=== PATIENT | male | born 1975 | race Caucasian/White ===

== ENCOUNTER → 2016-10-11 | Outpatient (CLI) | payer OTHER ==
--- NOTE | 2016-10-11 12:24 | REP ---
MRI left ankle without contrast, 10/11/2016: Indication: Post traumatic osteoarthritis. Comparison made with left ankle series 05/12/2015 and fluoroscopic images left ankle 05/29/2015. Findings: Sagittal, axial and coronal images were obtained of the left ankle without contrast. Findings: Two old transversely oriented screw tracks are seen traversing the distal tibia and fibula. The alignment appears anatomic. There is mild narrowing of the mortise joint Achilles tendon and plantar fascia are intact. Flexor and extensor tendons about the ankle appear intact. There is a small ankle joint effusion. The anterior and posterior talofibular ligaments, and calcaneofibular ligament are intact. Minimal edema is identified within the anterior aspect of deltoid ligament, yet it is intact. There is no fracture or bone bruise. There is an minimal ankle joint effusion. Impression: 1. Postsurgical changes with old screw tracks seen through the distal tibia and fibula. The alignment is anatomic. There is mild narrowing of tibiotalar joint. 2. No fracture, ligamentous or tendinous disruption. There is minimal edema within the anterior aspect of deltoid you ligament, yet it is intact.3. Minimal ankle joint effusion. Signed by Monica Jacinto MD 10/13/2016 02:40 P
== END ==
LOC: M RAD 09:31
PROVIDERS: ATTEND Orthopaedic Surgery
DX: M25.572 Pain in left ankle and joints of left foot (principal)

== ENCOUNTER → 2017-02-19 | Outpatient (CLI) | payer BC, OTHER ==
--- NOTE | 2017-02-19 16:52 | REP ---
Right foot series: Four views: History: Right foot pain. Findings: Four views of the right foot demonstrate overall normal mineralization. Bones, joints and soft tissues are unremarkable. No fracture or bony destructive lesion is seen. Impression: Negative right foot radiographs. Signed by Daniel Arnett MD 02/20/2017 08:59 A
== END ==
LOC: M LRY 16:22
PROVIDERS: ATTEND Nurse Practitioner Family
DX: M25.571 Pain in right ankle and joints of right foot (principal)

== ENCOUNTER → 2018-04-07 | Outpatient (REF) | payer OTHER | LOC: M SFHCLERA 18:30 | DX: R53.81 Other malaise (principal) ==

== ENCOUNTER → 2019-07-12 | Outpatient (CLI) | payer OTHER ==
--- NOTE | 2019-07-12 12:50 | REP ---
LUMBAR SPINE SERIES: Five views. HISTORY: Back pain. FINDINGS: Five views of the lumbar spine show preserved vertebral body heights. Alignment is normal. There is mild discogenic spurring anteriorly at L1-2 and to a lesser extent L3-4. There is mild disc space narrowing at L4-5. There is no evidence of spondylolysis or spondylolisthesis. Mild facet hypertrophy and sclerosis is present bilaterally at L5-S1. Psoas margins are symmetric. Sacrum SI joints are intact. IMPRESSION: Mild degenerative disc and facet changes. No acute bony abnormality. Electronically Signed by Daniel Arnett MD 07/12/2019 01:55 P
== END ==
LOC: M LRY 11:55
PROVIDERS: ATTEND Nurse Practitioner Family
DX: M25.78 Osteophyte, vertebrae (principal); M51.36 Other intervertebral disc degeneration, lumbar region

== ENCOUNTER → 2021-03-16 | Outpatient (CLI) | payer OTHER ==
[~2021-03-16] MED LIST: ALOG6.25 PO; FISH1000 PO; LOPI600T PO; LORA-674 PO; VITMTA PO
== END ==
LOC: M LABSMTC 09:33
PROVIDERS: ATTEND Anesthesiology
DX: Z01.818 Encounter for other preprocedural examination (principal); Z20.822 Contact with and (suspected) exposure to COVID-19

== ENCOUNTER 2021-03-21 07:21 | Day surgery (SDC) | payer OTHER ==
[~2021-03-21] VITALS: Ht 185.4 cm; Wt 143.7 kg
[~2021-03-21 07:21] MED LIST changes: +LIDOCAINE 2% 100MG/5ML SDV (FOR ANES.) As Ordered ONE; +NS 1,000 ML IV ONE; +propofoL 200 MG/20 ML VIAL As Ordered ONE
--- NOTE | 2021-03-21 09:03 | ROOR ---
Patient Name: Doug Laguerre Procedure Date: 03/21/2021 8:41 AM Date of : 1975 Age: 45 Room: [facility] Gender: Male Note Status: Finalized Procedure: Colonoscopy Indications: Screening for colorectal malignant neoplasm Providers: DO Manju Cason MD: Lon Vanegas Requesting Provider: Medicines: Propofol per Anesthesia Complications: No immediate complications. Procedure: Pre-Anesthesia Assessment: - Prior to the procedure, a History and Physical was performed, and patient medications and allergies were reviewed. The patient is competent. The risks and benefits of the procedure and the sedation options and risks were discussed with the patient. All questions were answered and informed consent was obtained. Patient identification and proposed procedure were verified by the physician, the nurse, the anesthesiologist and the associate technician in the endoscopy suite. Mental Status Examination: alert and oriented. Airway Examination: normal oropharyngeal airway and neck mobility. Respiratory Examination: clear to auscultation. CV Examination: normal. Prophylactic Antibiotics: The patient does not require prophylactic antibiotics. Prior Anticoagulants: The patient has taken no previous anticoagulant or antiplatelet agents. ASA Grade Assessment: II - A patient with mild systemic disease. After reviewing the risks and benefits, the patient was deemed in satisfactory condition to undergo the procedure. The anesthesia plan was to use monitored anesthesia care (MAC). Immediately prior to administration of medications, the patient was re-assessed for adequacy to receive sedatives. The heart rate, respiratory rate, oxygen saturations, blood pressure, adequacy of pulmonary ventilation, and response to care were monitored throughout the procedure. The physical status of the patient was re-assessed after the procedure. The Colonoscope was introduced through the anus and advanced to the cecum, identified by appendiceal orifice and ileocecal valve. The colonoscopy was performed without difficulty. The patient tolerated the procedure well. Findings: Non-bleeding internal hemorrhoids were found during retroflexion. The hemorrhoids were mild and Grade II (internal hemorrhoids that prolapse but reduce spontaneously). Impression: - Non-bleeding internal hemorrhoids. - No specimens collected. Recommendation: - Patient has a contact number available for emergencies. The signs and symptoms of potential delayed complications were discussed with the patient. Return to normal activities tomorrow. Written discharge instructions were provided to the patient. - Repeat colonoscopy in 5-10 years for screening purposes. - Return to my office PRN. Procedure Code(s): --- Professional --- G0121, Colorectal cancer screening; colonoscopy on individual not meeting criteria for high risk Diagnosis Code(s): --- Professional --- Z12.11, Encounter for screening for malignant neoplasm of colon K64.1, Second degree hemorrhoids CPT copyright 2019 [employer]. All rights reserved. The codes documented in this report are preliminary and upon window sash installer review may be revised to meet current compliance requirements. Lon Ospina DO 03/21/2021 9:02:39 AM Electronically signed by Lon Ospina DO Number of Addenda: 0 Note Initiated On: 03/21/2021 8:41 AM Estimated Blood Loss: Estimated blood loss: none.
[2021-03-21 09:20] VITALS: BP 132/71
== END 2021-03-21 09:29 | disposition home or self-care (01) ==
LOC: M OPP 07:21
PROVIDERS: ATTEND Surgery
DX: Z12.11 Encounter for screening for malignant neoplasm of colon (principal); K64.1 Second degree hemorrhoids; Z79.899 Other long term (current) drug therapy; Z88.1 Allergy status to other antibiotic agents; Z88.2 Allergy status to sulfonamides; Z87.891 Personal history of nicotine dependence

== ENCOUNTER → 2021-09-12 | Outpatient (CLI) | payer OTHER ==
[~2021-09-12] MED LIST changes: -LIDOCAINE 2% 100MG/5ML SDV (FOR ANES.) As Ordered ONE; -NS 1,000 ML IV ONE; -propofoL 200 MG/20 ML VIAL As Ordered ONE
== END ==
LOC: M PLAIMG 13:03
PROVIDERS: ATTEND Nurse Practitioner Acute Care
DX: M25.512 Pain in left shoulder (principal); Z79.899 Other long term (current) drug therapy